=== PATIENT | male | born 1955 | race Caucasian/White ===

== ENCOUNTER 2019-10-20 18:33 | Emergency (ER) | payer BC ==
--- NOTE | 2019-10-20 19:46 | ER Document Report ---
ED Medical Screen (RME) - General Chief Complaint: Knee Pain Stated Complaint: KNEE INJURY Time Seen by Provider: 10/20/19 19:37 TRAVEL OUTSIDE OF THE [place] IN LAST 30 DAYS: No - Related Data Allergies/Adverse Reactions: No Known Allergies Allergy (Verified 02/19/16 11:40) Past Medical History - Past Medical History Cardiac Medical History: Denies: Hx Coronary Artery Disease, Hx Heart Attack, Hx Hypertension Pulmonary Medical History: Denies: Hx Asthma, Hx Bronchitis, Hx COPD, Hx Pneumonia Neurological Medical History: Denies: Hx Cerebrovascular Accident, Hx Seizures Musculoskeltal Medical History: Denies Hx Arthritis - Immunizations Hx Diphtheria, Pertussis, Tetanus Vaccination: No Physical Exam - Vital signs Vitals: Temp Pulse Resp BP Pulse Ox 98.7 F 64 14 139/75 H 99 10/20/19 18:38 10/20/19 18:38 10/20/19 18:38 10/20/19 18:38 10/20/19 18:38 Course - Vital Signs Vital signs: Temp Pulse Resp BP Pulse Ox 98.7 F 64 14 139/75 H 99 10/20/19 18:38 10/20/19 18:38 10/20/19 18:38 10/20/19 18:38 10/20/19 18:38
--- NOTE | 2019-10-20 20:46 | RADIOLOGY REPORT (SQ) ---
EXAM DESCRIPTION: XR KNEE 4 OR MORE VIEWS COMPLETED DATE/TME: 10/20/2019 19:41 CLINICAL HISTORY: 63 years, Male, right knee swelling COMPARISON: None. NUMBER OF VIEWS: Four TECHNIQUE: Frontal, lateral, and oblique radiographs were obtained. LIMITATIONS: None. FINDINGS: Well-corticated ossific density is noted about the lateral gutter corresponds to a loose body. Otherwise, there is mild tricompartmental osteoarthrosis, designated primarily by joint space narrowing. Only mild marginal osteophyte formation is noted about the anterior compartment. No acute fracture or dislocation is evident. There is a small amount of fluid within the suprapatellar recess. Arterial calcinosis is noted. IMPRESSION: No acute osseous anomaly. Mild tricompartmental osteoarthrosis. copyright 2010 [employer]- All Rights Reserved
--- NOTE | 2019-10-20 21:30 | ER Document Report ---
HPI - HPI Time Seen by Provider: 10/20/19 19:37 Pain Level: 3 Context: Patient is a 63-year-old male who presents to the emergency department with a chief complaint of right lateral knee pain and swelling. He was sitting and went to go stand and this happened. He is able to walk. Denies any numbness or tingling. - ROS Systems Reviewed and Negative: Yes All other systems reviewed and negative - REPRODUCTIVE Reproductive: DENIES: : - MUSCULOSKELETAL Musculoskeletal: REPORTS: Extremity pain - right lateral knee, Swelling - right lateral knee - DERM Skin Color: Normal Skin Problems: None Past Medical History - General Information source: Patient - Social History Smoking Status: Former Smoker Family History: Reviewed & Not Pertinent Patient has suicidal ideation: No Patient has homicidal ideation: No - Past Medical History Cardiac Medical History: Denies: Hx Coronary Artery Disease, Hx Heart Attack, Hx Hypertension Pulmonary Medical History: Denies: Hx Asthma, Hx Bronchitis, Hx COPD, Hx Pneumonia Neurological Medical History: Denies: Hx Cerebrovascular Accident, Hx Seizures Musculoskeletal Medical History: Denies Hx Arthritis - Immunizations Hx Diphtheria, Pertussis, Tetanus Vaccination: No Vertical Provider Document - CONSTITUTIONAL Agree With Documented VS: Yes Exam Limitations: No Limitations General Appearance: No Apparent Distress - INFECTION CONTROL TRAVEL OUTSIDE OF THE [place] IN LAST 30 DAYS: No - HEENT HEENT: Atraumatic, Normocephalic, PERRLA - NECK Neck: Normal Inspection - RESPIRATORY Respiratory: No Respiratory Distress - CARDIOVASCULAR Cardiovascular: Regular Rate, Regular Rhythm Pulses: Normal: Posterior tibial, Dorsalis pedis - MUSCULOSKELETAL/EXTREMETIES Musculoskeletal/Extremeties: FROM, Tender - right lateral knee, Edema - right lateral knee. negative: Eccymosis - NEURO Level of Consciousness: Awake, Alert, Appropriate Motor/Sensory: No Motor Deficit, No Sensory Deficit - DERM Integumentary: Warm, Dry, No Rash Course - Re-evaluation Re-evalutation: 10/20/19 09:55 Patient has an ossific density in the lateral gutter, which corresponds to a loose body, per the radiologist. There is also some osteoarthrosis noted. He also has an osteophyte. He will be placed in an Geo wrap and knee immobilizer. I offered him crutches, but he states that he has been at home. He was not wanting the knee immobilizer, but he insisted that he wear 1 for ambulation. He also has arterial calcinosis, but his dorsalis pedis and posterior tibial pulses were 2+ and capillary refill was possibly 3 seconds. I have a very low suspicion for any vascular compromise. Patient will follow-up with orthopedics. He is in agreement with this plan. Follow-up precautions were given. Verbal discharge instructions were given to the patient. They verbalized understanding. They are stable for discharge. - Vital Signs Vital signs: Temp Pulse Resp BP Pulse Ox 98.7 F 64 14 139/75 H 99 10/20/19 18:38 10/20/19 18:38 10/20/19 18:38 10/20/19 18:38 10/20/19 18:38 Discharge - Discharge Clinical Impression: Right knee pain Qualifiers: Chronicity: acute Qualified Code(s): M25.561 - Pain in right knee Osteoarthritis Qualifiers: Osteoarthritis location: knee Osteoarthritis type: unspecified Laterality: right Qualified Code(s): M17.11 - Unilateral primary osteoarthritis, right knee Condition: Stable Disposition: HOME, SELF-CARE Instructions: Use of Crutches ([facility]), Ice & Elevation ([facility]), Knee Immobilizing Splint ([facility]) Additional Instructions: You were seen today in the emergency department for right knee swelling and pain. It shows that you have osteoarthritis. You are being sent home with crutches, a knee immobilizer and an Geo wrap. Please follow-up with orthopedics in regards to this visit. Forms: Return to Work Referrals: IDALIA NOLASCO MD [ACTIVE PROVISIONAL STAFF] - Follow up in 3-5 days RICHARD GEORGE MD [ACTIVE STAFF] - Follow up in 3-5 days ANA COATES JR, DO [ACTIVE PROVISIONAL STAFF] - Follow up in 3-5 days
[2019-10-20 21:38] VITALS: BP 127/78
== END 2019-10-20 21:43 | disposition home or self-care (01) ==
LOC: ER 18:33
DX: M17.11 Unilateral primary osteoarthritis, right knee (principal); M25.561 Pain in right knee; M79.89 Other specified soft tissue disorders; Z87.891 Personal history of nicotine dependence
CPT/HCPCS: 99283; 73564; L1830